=== PATIENT | male | born 1995 | race Caucasian/White ===

== ENCOUNTER 2019-12-31 14:30 | Emergency (ER) | payer SELFPAY ==
[~2019-12-31] VITALS: Ht 172.7 cm; Wt 62.1 kg
--- NOTE | 2019-12-31 14:43 | NUR ---
ermd at bedside for hx and physical
[2019-12-31] MEDS ORDERED: ACETAMINOPHEN ES 500 MG TABLET ONE (15:00)
--- NOTE | 2019-12-31 15:00 | NUR ---
Patient discharged to home in stable condition. Written and verbal after care instructions given. Patient verbalizes understanding of instructions. Stressed follow up or return to ER for worsening s/s. ambulatory w/ stable all belongings w/ pt
[2019-12-31 15:08] LABS: *BILIRUBIN,URIN NEGATIVE (NEGATIVE); *BLOOD, URINE NEGATIVE (NEGATIVE); *CLARITY,URINE CLEAR (CLEAR); *COLOR,URINE YELLOW (YELLOW); *KETONES,URINE NEGATIVE (NEGATIVE); *UROBILINOGEN,URINE 0.2 E.U./dl (NORMAL); LEUKOCYTE ESTERASE ,URINE NEGATIVE (NEGATIVE); NITRITE, URINE NEGATIVE (NEGATIVE); PH,URINE 7.5 (5.0-8.0); UGLUCOSE NEGATIVE (NEGATIVE)
[2019-12-31 16:51] VITALS: BP 131/79
== END 2019-12-31 15:30 | disposition home or self-care (01) ==
LOC: ER 14:30
DX: J02.9 Acute pharyngitis, unspecified (principal); R82.90 Unspecified abnormal findings in urine; Z85.51 Personal history of malignant neoplasm of bladder
CPT/HCPCS: A4663; A9150